=== PATIENT | female | born 1980 | race Caucasian/White ===

== ENCOUNTER 2020-08-04 18:53 | Inpatient (IN) | payer OTHER ==
[~2020-08-04] VITALS: Ht 172.7 cm; Wt 177.9 kg
[2020-08-04 20:21] LABS: Basophils # (auto) 0 10 ^3/uL (0-0.2); Basophils % (auto) 0.4 % (0.0-2.0); Eosinophils # (auto) 0 10 ^3/uL (0-0.8); Hematocrit 39.5 % (36.0-46.0); Hemoglobin 13.1 g/dL (12.2-16.2); Lymphocytes # (auto) 0.9 10 ^3/uL (0.4-5.4); Lymphocytes % (auto) 18.3 % (10.0-50.0); Mean Corpuscular Hemoglobin 26.1 pg (28.0-32.0); Mean Corpuscular Volume 78.9 fL (80.0-100.0); Monocytes # (auto) 0.5 10 ^3/uL (0-1.3); Monocytes % (auto) 10.4 % (0.0-12.0); Neutrophils # (auto) 3.4 10 ^3/uL (1.6-8.6); Neutrophils % (auto) 70.9 % (37.0-80.0); Nucleated Red Blood Cells % 0.2 %; Platelet Count (auto) 191 10^3/uL (140-450); Red Blood Cells 5.01 10^6/uL (4.0-5.20); White Blood Cell 4.8 10^3/uL (4.4-10.8)
[2020-08-04 20:45] LABS: BUN/Creatinine Ratio 15.2; Calcium 7.4 mg/dL (8.5-10.1); Potassium 3.4 mmol/L (3.5-5.1)
[2020-08-04 20:49] LABS: Bilirubin, Total 0.5 mg/dL (0.2-1.0); Total Protein 7.1 g/dL (6.4-8.2)
[2020-08-04] MEDS ORDERED: DexAMETHasone SOD PHOS 10MG/1ML VIAL INJ IV ONE (22:15)
[2020-08-04] MEDS ORDERED: DOXYCYCLINE 100MG/250ML 250 ML IV ONE (22:15)
[2020-08-04] MEDS ORDERED: ACETAMINOPHEN 325 MG TAB PO ONE (22:15)
[2020-08-05 00:32] LABS: INR 1.07 (0.9-1.15); Partial Thromboplastin Time 27.3 sec (23.0-31.2)
[2020-08-05] MEDS ORDERED: MORPHINE SULF INJ 2 MG/ML SYRINGE 1ML IV PRN ×2 (03:30)
[2020-08-05] MEDS ORDERED: HYDROcodone-ACET 5/325MG TAB PO PRN (03:30)
[2020-08-05] MEDS ORDERED: ATORVASTATIN 20 MG TAB PO ONE (03:30)
[2020-08-05] MEDS ORDERED: SODIUM CHLORIDE 0.9% 1,000 ML IV SCH (03:30)
[2020-08-05] MEDS ORDERED: ZOLPIDEM TARTRATE 5 MG TAB PO PRN (03:30)
[2020-08-05] MEDS ORDERED: NITROGLYCERIN 0.4 MG SL TAB SL PRN (03:30)
[2020-08-05] MEDS: ENOXAPARIN SOD 150 MG/1 ML SYRINGE SC SCH ×2 (04:14→15:54)
[2020-08-05] MEDS ORDERED: ALBUTEROL SULF HFA 90MCG INH 200DOSE IN SCH (06:00)
[2020-08-05] MEDS: ZINC SULFATE 220mg CAP or TAB PO SCH (08:29)
[2020-08-05] MEDS: ASCORBIC ACID 1,000 MG TAB PO SCH (08:30)
[2020-08-05] MEDS: DOXYCYCLINE 100 MG TAB/CAP PO SCH ×2 (08:30→22:37)
[2020-08-05 09:43] VITALS: BP 105/58
[2020-08-05] MEDS ORDERED: METOPROLOL TARTRATE 25 MG TAB PO SCH (10:00)
[2020-08-05] MEDS ORDERED: CLOPIDOGREL BISULFATE 75 MG TAB PO SCH (10:00)
[2020-08-05] MEDS ORDERED: ASPirin 81 mg TAB PO SCH (10:00)
[2020-08-05] MEDS ORDERED: LISINOPRIL 20 MG TAB PO SCH (10:00)
[2020-08-05] MEDS ORDERED: ENOXAPARIN SOD 40 MG/0.4 ML SYRINGE SC SCH (10:00)
[2020-08-05] MEDS ORDERED: POTASSIUM CHL 20 Meq TABLET PO ONE ×2 (11:00→13:00)
[2020-08-05] MEDS ORDERED: FUROSEMIDE 40 MG/4 ML VIAL IV ONE (13:00)
[2020-08-05] MEDS ORDERED: REMDESIVIR PER PHARMACY IV SCH (13:00)
[2020-08-05] MEDS: ALBUTEROL SULF HFA 90MCG INH 200DOSE IN SCH ×2 (14:00→22:32)
[2020-08-05] MEDS ORDERED: REMDESIVIR 200 MG in NS 210ml LOADING DOSE ADULT IV ONE (17:00)
[2020-08-06 00:40] VITALS: BP 97/53
[2020-08-06 00:55] VITALS: BP 97/51
[2020-08-06 02:18] VITALS: BP 107/60
[2020-08-06] MEDS: ENOXAPARIN SOD 150 MG/1 ML SYRINGE SC SCH (04:31)
[2020-08-06 07:19] LABS: Basophils # (auto) 0 10 ^3/uL (0-0.2); Eosinophils # (auto) 0 10 ^3/uL (0-0.8); Monocytes # (auto) 0.7 10 ^3/uL (0-1.3); Neutrophils # (auto) 6.9 10 ^3/uL (1.6-8.6); Nucleated Red Blood Cells % 0.1 %
[2020-08-06] MEDS: ALBUTEROL SULF HFA 90MCG INH 200DOSE IN SCH ×3 (07:21→22:00)
[2020-08-06 07:22] LABS: Basophils % (auto) 0.1 % (0.0-2.0); Hematocrit 41.4 % (36.0-46.0); Hemoglobin 13.3 g/dL (12.2-16.2); Lymphocytes # (auto) 0.6 10 ^3/uL (0.4-5.4); Lymphocytes % (auto) 7.5 % (10.0-50.0); Mean Corpuscular Hemoglobin 25.9 pg (28.0-32.0); Mean Corpuscular Hgb Conc. 32.2 g/dL (32.0-36.0); Mean Corpuscular Volume 80.4 fL (80.0-100.0); Monocytes % (auto) 8.2 % (0.0-12.0); Neutrophils % (auto) 84.2 % (37.0-80.0); Platelet Count (auto) 237 10^3/uL (140-450); Red Blood Cells 5.16 10^6/uL (4.0-5.20); Red Cell Distribution Width 16.1 % (11.8-14.3); White Blood Cell 8.2 10^3/uL (4.4-10.8)
[2020-08-06 07:39] LABS: Potassium 4.1 mmol/L (3.5-5.1)
[2020-08-06 07:51] LABS: BUN/Creatinine Ratio 41.7; Bilirubin, Total 0.5 mg/dL (0.2-1.0); Total Protein 7.1 g/dL (6.4-8.2)
[2020-08-06] MEDS ORDERED: POTASSIUM CHL 20 Meq TABLET PO SCH (10:00)
[2020-08-06] MEDS ORDERED: FUROSEMIDE 40 MG/4 ML VIAL IV SCH (10:00)
[2020-08-06] MEDS: ASCORBIC ACID 1,000 MG TAB PO SCH (10:58)
[2020-08-06] MEDS: ZINC SULFATE 220mg CAP or TAB PO SCH (10:58)
[2020-08-06] MEDS: CHOLECALCIFEROL (VITD3) 2,000 UNIT CAP PO SCH (10:58)
[2020-08-06] MEDS: DOXYCYCLINE 100 MG TAB/CAP PO SCH ×2 (10:58→21:24)
[2020-08-06] MEDS ORDERED: ASPirin-EC 81 mg tab PO ONE (17:00)
[2020-08-06] MEDS: REMDESIVIR 100mg in NS 230ml DAILYx4DAYS (NO VENT) IV SCH (17:01)
[2020-08-06 20:32] VITALS: BP 111/67
--- NOTE | 2020-08-06 20:32 | NUR ---
Telemetry admit from ER TITOJAZMIN admitted to Telemetry unit. Patient oriented to SUSAN NICKERSON, RN primary RN, unit, room, bed, and unit policies regarding patient care and visiting hours. Patient now on continuous telemetry monitoring, tele box #50 and telemetry reading on arrival to unit is NSR HR 87. Patient placed on bedside oxygen, weighed by bedscale and encouraged to call if they need something. All questions and concerns addressed, patient verbalized understanding. Will continue to monitor q1hr and PRN.
[2020-08-06] MEDS: ENOXAPARIN SOD 40 MG/0.4 ML SYRINGE SC SCH (21:24)
[2020-08-06 22:00] VITALS: BP 111/67
[2020-08-07 05:00] VITALS: BP 118/70
[2020-08-07 06:48] LABS: Basophils # (auto) 0 10 ^3/uL (0-0.2); Eosinophils # (auto) 0 10 ^3/uL (0-0.8)
[2020-08-07 06:51] LABS: Basophils % (auto) 0.2 % (0.0-2.0); Hematocrit 37.7 % (36.0-46.0); Hemoglobin 12.3 g/dL (12.2-16.2); Lymphocytes # (auto) 0.6 10 ^3/uL (0.4-5.4); Lymphocytes % (auto) 8.5 % (10.0-50.0); Mean Corpuscular Hemoglobin 25.9 pg (28.0-32.0); Mean Corpuscular Hgb Conc. 32.7 g/dL (32.0-36.0); Mean Corpuscular Volume 79.2 fL (80.0-100.0); Monocytes # (auto) 0.4 10 ^3/uL (0-1.3); Monocytes % (auto) 6.1 % (0.0-12.0); Neutrophils # (auto) 5.6 10 ^3/uL (1.6-8.6); Neutrophils % (auto) 85.2 % (37.0-80.0); Platelet Count (auto) 244 10^3/uL (140-450); Red Blood Cells 4.76 10^6/uL (4.0-5.20); Red Cell Distribution Width 16.3 % (11.8-14.3); White Blood Cell 6.5 10^3/uL (4.4-10.8)
[2020-08-07 07:06] LABS: Albumin 2.7 g/dL (3.4-5.0); Calcium 8.2 mg/dL (8.5-10.1); Potassium 3.8 mmol/L (3.5-5.1)
[2020-08-07 07:08] LABS: Bilirubin, Total 0.6 mg/dL (0.2-1.0); Total Protein 6.4 g/dL (6.4-8.2)
[2020-08-07] MEDS: ALBUTEROL SULF HFA 90MCG INH 200DOSE IN SCH ×3 (07:22→22:39)
--- NOTE | 2020-08-07 07:22 | NUR ---
Respiratory note: SWITCHED PT TO 15LNRB AT THIS TIME
--- NOTE | 2020-08-07 07:32 | NUR ---
Closing note Endorsed care to day shift RN. no sob or distress noted.
[2020-08-07 09:00] VITALS: BP 124/73
[2020-08-07] MEDS: ZINC SULFATE 220mg CAP or TAB PO SCH (09:03)
[2020-08-07] MEDS: CHOLECALCIFEROL (VITD3) 2,000 UNIT CAP PO SCH (09:04)
[2020-08-07] MEDS: DOXYCYCLINE 100 MG TAB/CAP PO SCH ×2 (09:04→21:21)
[2020-08-07] MEDS: ENOXAPARIN SOD 40 MG/0.4 ML SYRINGE SC SCH (09:04)
[2020-08-07] MEDS: ASCORBIC ACID 1,000 MG TAB PO SCH (09:04)
[2020-08-07] MEDS ORDERED: ASPirin-EC 81 mg tab PO SCH (10:00)
[2020-08-07] MEDS: FUROSEMIDE 40 MG/4 ML VIAL IV SCH (13:05)
[2020-08-07 13:06] VITALS: BP 128/71
[2020-08-07] MEDS: POTASSIUM CHL 10 Meq TABLET PO SCH (13:06)
[2020-08-07] MEDS ORDERED: DexAMETHasone SOD PHOS 10MG/1ML VIAL INJ IV ONE (15:15)
[2020-08-07 17:00] VITALS: BP 130/72
[2020-08-07] MEDS: REMDESIVIR 100mg in NS 230ml DAILYx4DAYS (NO VENT) IV SCH (18:23)
--- NOTE | 2020-08-07 20:20 | NUR ---
open note assumed care of pt. pt awake and alert upon entry. pt on 15 oxymizer with no distress visualized or expressed. this nurse instructed and observed pt on proper use of incentive spirometer. pt denies any pain. pt oriented to this nurse and updated on plan of care. pt bed locked, low and 2x rails up. call light in reach, this nurse to touch base with pt q1hr and prn. pt encouraged to call as needed.
[2020-08-07 21:22] VITALS: BP 137/73
[2020-08-07] MEDS: ENOXAPARIN SOD 100 MG/1 ML SYRINGE SC SCH (21:22)
[2020-08-08 04:54] VITALS: BP 109/64
[2020-08-08 06:17] LABS: Basophils # (auto) 0 10 ^3/uL (0-0.2); Basophils % (auto) 0.1 % (0.0-2.0); Eosinophils # (auto) 0 10 ^3/uL (0-0.8); Hematocrit 38.6 % (36.0-46.0); Hemoglobin 12.2 g/dL (12.2-16.2); Lymphocytes # (auto) 0.3 10 ^3/uL (0.4-5.4); Lymphocytes % (auto) 9.8 % (10.0-50.0); Mean Corpuscular Hemoglobin 25.7 pg (28.0-32.0); Mean Corpuscular Hgb Conc. 31.7 g/dL (32.0-36.0); Mean Corpuscular Volume 81.3 fL (80.0-100.0); Monocytes # (auto) 0.4 10 ^3/uL (0-1.3); Monocytes % (auto) 10.3 % (0.0-12.0); Neutrophils # (auto) 2.8 10 ^3/uL (1.6-8.6); Neutrophils % (auto) 79.8 % (37.0-80.0); Platelet Count (auto) 212 10^3/uL (140-450); Red Blood Cells 4.75 10^6/uL (4.0-5.20); Red Cell Distribution Width 15.9 % (11.8-14.3); White Blood Cell 3.5 10^3/uL (4.4-10.8)
[2020-08-08] MEDS: ALBUTEROL SULF HFA 90MCG INH 200DOSE IN SCH (06:31)
[2020-08-08 06:33] LABS: Anion Gap 4 (5-15); BUN/Creatinine Ratio 29.7; Blood Urea Nitrogen 19 mg/dL (7-18); Calcium 8.1 mg/dL (8.5-10.1); Carbon Dioxide 24 mmol/L (21-32); Chloride 110 mmol/L (98-107); GFR African American 133 mL/min; GFR Non-African American 110 mL/min; Glucose 190 mg/dL (74-106); Potassium 4.6 mmol/L (3.5-5.1); Sodium 138 mmol/L (136-145)
--- NOTE | 2020-08-08 07:00 | NUR ---
OPENING SHIFT NOTE RECEIVED REPORT ON THE PATIENT. AWAKE LYING IN BED. PATIENT SHOWS NO SIGNS OF DISTRESS AT THIS TIME. DISCUSSED THE PLAN OF CARE WITH THE PATIENT. BED IN LOWEST POSITION, SIDE RAILS UP X2, AND THE CALL LIGHT IS WITHIN REACH.
[2020-08-08 09:00] VITALS: BP 128/65
[2020-08-08] MEDS: FUROSEMIDE 40 MG/4 ML VIAL IV SCH (09:19)
[2020-08-08] MEDS: ZINC SULFATE 220mg CAP or TAB PO SCH (09:19)
[2020-08-08] MEDS: POTASSIUM CHL 10 Meq TABLET PO SCH (09:19)
[2020-08-08] MEDS: CHOLECALCIFEROL (VITD3) 2,000 UNIT CAP PO SCH (09:20)
[2020-08-08] MEDS: ASCORBIC ACID 1,000 MG TAB PO SCH (09:20)
[2020-08-08] MEDS: DOXYCYCLINE 100 MG TAB/CAP PO SCH ×2 (09:20→22:08)
[2020-08-08] MEDS: DexAMETHasone SOD PHOS 10MG/1ML VIAL INJ IV SCH (10:00)
[2020-08-08] MEDS: ENOXAPARIN SOD 100 MG/1 ML SYRINGE SC SCH ×2 (10:00→22:08)
--- NOTE | 2020-08-08 12:03 | NUR ---
Nutrition Assessment Est energy needs 2223-0299 kcal (25-30 kcal/kg IBW 64kg) Est protein needs 64-83g (1-1.3g/kg IBW 64kg) Will monitor and reassess prn. Addendum: 08/08/20 at [address] Amended: Links added.
[2020-08-08 12:53] VITALS: BP 127/60
[2020-08-08 17:00] VITALS: BP 134/73
--- NOTE | 2020-08-08 18:48 | NUR ---
PATIENT DOWN TO 10L O2. SAT IS 94% OXYMIZER. WILL CONTINUE TO MONITOR.
[2020-08-08] MEDS: REMDESIVIR 100mg in NS 230ml DAILYx4DAYS (NO VENT) IV SCH (18:50)
--- NOTE | 2020-08-08 19:40 | NUR ---
Opening Shift Note Assumed care of patient, awake and alert. No S/S of distress/SOB or pain. Patient on 10L Oxymizer. Instructed on POC and to call for assist PRN, will continue to monitor for changes Q1hr and PRN. Bed locked and in lowest position with call light in reach.
[2020-08-08 20:00] VITALS: BP 135/64
[2020-08-08] MEDS: ALBUTEROL SULF HFA 90MCG INH 200DOSE IN PRN (20:00)
[2020-08-09 04:13] VITALS: BP 122/62
[2020-08-09 08:03] LABS: Basophils # (auto) 0 10 ^3/uL (0-0.2); Basophils % (auto) 0.1 % (0.0-2.0); Eosinophils # (auto) 0 10 ^3/uL (0-0.8); Lymphocytes % (auto) 8.5 % (10.0-50.0); Monocytes # (auto) 0.5 10 ^3/uL (0-1.3)
[2020-08-09 08:05] LABS: Albumin 2.6 g/dL (3.4-5.0); Calcium 8.3 mg/dL (8.5-10.1); Eosinophils % (auto) 0.1 % (0.0-7.0); Hematocrit 38.4 % (36.0-46.0); Hemoglobin 12.1 g/dL (12.2-16.2); Lymphocytes # (auto) 0.5 10 ^3/uL (0.4-5.4); Mean Corpuscular Hemoglobin 25.3 pg (28.0-32.0); Mean Corpuscular Hgb Conc. 31.6 g/dL (32.0-36.0); Monocytes % (auto) 8.3 % (0.0-12.0); Neutrophils # (auto) 4.6 10 ^3/uL (1.6-8.6); Nucleated Red Blood Cells % 0.1 %; Platelet Count (auto) 254 10^3/uL (140-450); Red Cell Distribution Width 15.5 % (11.8-14.3); White Blood Cell 5.6 10^3/uL (4.4-10.8)
[2020-08-09 08:14] LABS: BUN/Creatinine Ratio 33.9; Bilirubin, Total 0.6 mg/dL (0.2-1.0); CRP High Sensitivity 3.94 mg/dL (< 0.3); Total Protein 6.6 g/dL (6.4-8.2)
[2020-08-09] MEDS: DexAMETHasone SOD PHOS 10MG/1ML VIAL INJ IV SCH (08:45)
[2020-08-09] MEDS: FUROSEMIDE 40 MG/4 ML VIAL IV SCH ×2 (08:46→21:59)
[2020-08-09] MEDS: ZINC SULFATE 220mg CAP or TAB PO SCH (08:46)
[2020-08-09] MEDS: DOXYCYCLINE 100 MG TAB/CAP PO SCH ×2 (08:46→21:59)
[2020-08-09] MEDS: POTASSIUM CHL 10 Meq TABLET PO SCH ×2 (08:46→21:59)
[2020-08-09] MEDS: ENOXAPARIN SOD 100 MG/1 ML SYRINGE SC SCH ×2 (08:46→22:00)
[2020-08-09] MEDS: ASCORBIC ACID 1,000 MG TAB PO SCH (08:46)
[2020-08-09] MEDS: CHOLECALCIFEROL (VITD3) 2,000 UNIT CAP PO SCH (08:46)
[2020-08-09 08:47] VITALS: BP 132/58
[2020-08-09 13:00] VITALS: BP 116/63
[2020-08-09 17:00] VITALS: BP 115/64
[2020-08-09] MEDS: REMDESIVIR 100mg in NS 230ml DAILYx4DAYS (NO VENT) IV SCH (19:10)
--- NOTE | 2020-08-09 19:50 | NUR ---
Opening Shift Note Assumed care of patient, awake and alert. Patient on 15L Nonrebreather. Instructed on POC and to call for assist PRN, will continue to monitor for changes Q1hr and PRN. Bed locked and in lowest position with call light in reach.
[2020-08-09 20:22] VITALS: BP 124/88
--- NOTE | 2020-08-09 23:35 | NUR ---
Respiratory note: PT ASSESSED FOR PRN TX. HEART RATE 86, RESPIRATORY RATE 20, SPO2 94% ON 15L OXYMIZER. NO TX INDICATED AT THIS TIME.
[2020-08-10 04:40] VITALS: BP 139/80
[2020-08-10] MEDS: ALBUTEROL SULF HFA 90MCG INH 200DOSE IN PRN ×2 (06:34→22:52)
--- NOTE | 2020-08-10 08:00 | NUR ---
OPENING SHIFT NOTE ASSUMED CARE OF PATIENT AWAKE AND ALERT. NO S/S OF DISTRESS NOTED OR COMPLAINTS OF PAIN. PATIENT IS ON 15L NON-REBREATHER WITH AN OXYGEN SATURATION OF 92%. PATIENT BECOMES EASILY SOB WITH EXERTION. WHILE EATING PATIENT IS TRANSFERRED TO AN OXYMIZER AND SATURATION GOES DOWN TO 84%; PATIENT STATES SHE FEELS SOB BUT EXPERIENCES NO DIZZINESS OR CHANGE IN MENTAL STATUS. PATIENT UPDATED ON POC FOR THE DAY AND ALL QUESTIONS ANSWERED. BED IS IN LOWEST, LOCKED POSITION WITH SIDE RAILS UP X2 AND CALL LIGHT WITHIN REACH. WILL CONTINUE TO MONITOR Q1H AND PRN.
[2020-08-10 09:00] VITALS: BP 119/60
[2020-08-10] MEDS: DexAMETHasone SOD PHOS 10MG/1ML VIAL INJ IV SCH (09:13)
[2020-08-10] MEDS: ZINC SULFATE 220mg CAP or TAB PO SCH (09:14)
[2020-08-10] MEDS: CHOLECALCIFEROL (VITD3) 2,000 UNIT CAP PO SCH (09:14)
[2020-08-10] MEDS: FUROSEMIDE 40 MG/4 ML VIAL IV SCH ×2 (09:14→22:32)
[2020-08-10] MEDS: ASCORBIC ACID 1,000 MG TAB PO SCH (09:14)
[2020-08-10] MEDS: POTASSIUM CHL 10 Meq TABLET PO SCH ×2 (09:14→22:32)
[2020-08-10] MEDS: ENOXAPARIN SOD 100 MG/1 ML SYRINGE SC SCH ×2 (09:15→22:32)
[2020-08-10 12:45] VITALS: BP 129/73
--- NOTE | 2020-08-10 16:38 | NUR ---
Faxed ABG results to [place] [phone] Leana BAXTER.
[2020-08-10 17:00] VITALS: BP 135/74
--- NOTE | 2020-08-10 18:12 | NUR ---
[facility] RECEIVED CALL FROM BARBY AT [facility] REGARDING TRANSFER. D/T ABG RESULTS ACCEPTING MD STATES PATIENT IS NOT ELIGIBLE FOR TRANSFER TONIGHT. WILL CONTINUE CARE.
[2020-08-10 22:29] VITALS: BP 126/68
--- NOTE | 2020-08-11 08:00 | NUR ---
OPENING SHIFT NOTE ASSUMED CARE OF PATIENT AWAKE AND ALERT. NO S/S OF DISTRESS NOTED OR COMPLAINTS OF PAIN. PATIENT IS ON 15L NON-REBREATHER WITH AN OXYGEN SATURATION OF 88% AND NOTICEABLE SOB. PATIENT STATES SHE FEELS SOB BUT EXPERIENCES NO DIZZINESS OR CHANGE IN MENTAL STATUS. DR BRYAN NOTIFIED. PATIENT UPDATED ON POC FOR THE DAY AND ALL QUESTIONS ANSWERED. BED IS IN LOWEST, LOCKED POSITION WITH SIDE RAILS UP X2 AND CALL LIGHT WITHIN REACH. WILL CONTINUE TO MONITOR Q1H AND PRN.
[2020-08-11 09:00] VITALS: BP 126/69
[2020-08-11] MEDS: FUROSEMIDE 40 MG/4 ML VIAL IV SCH ×2 (09:22→21:55)
[2020-08-11] MEDS: DexAMETHasone SOD PHOS 10MG/1ML VIAL INJ IV SCH (09:22)
[2020-08-11] MEDS: ZINC SULFATE 220mg CAP or TAB PO SCH (09:23)
[2020-08-11] MEDS: ENOXAPARIN SOD 100 MG/1 ML SYRINGE SC SCH ×2 (09:23→21:56)
[2020-08-11] MEDS: CHOLECALCIFEROL (VITD3) 2,000 UNIT CAP PO SCH (09:23)
[2020-08-11] MEDS: ASCORBIC ACID 1,000 MG TAB PO SCH (09:23)
[2020-08-11] MEDS: POTASSIUM CHL 10 Meq TABLET PO SCH ×2 (09:23→21:56)
--- NOTE | 2020-08-11 11:59 | NUR ---
Nutrition Followup Note Wt 206kg Pt is covid positive in covid isolation in the [facility] ([place], [place]). Pt is awaiting transfer to [place]. Pt is with a regular diet with a good po intake aeb pt with 100% po intake 12/5 per Rn note Est energy needs 7799-0704 kcal (25-30 kcal/kg IBW 64kg) Est protein needs 64-83g (1-1.3g/kg IBW 64kg) Will monitor and reassess prn. Labs: BUN 19H, GLUC 169H, Alb 2.6L, Ca 8.3L BM: Pt with 1 BM 12/2 per Rn note Skin: BS 21 low risk PES: Obesity r/t caloric intake in excess of needs aeb pt with a BMI of 69.1kg/m2 Comments 1) Continue to monitor po intake, labs, skin 2) refer pt to OPD on DC 3) Continue current plan of care Expected Outcomes/Goals: 1) pt po intake >75% 2) pt to gain no further wt while in hospital 3) f/u 3-5 days
--- NOTE | 2020-08-11 12:00 | NUR ---
OXYGEN PATIENT OXYGEN SATURATION IS 85% ON 15L NONREBREATHER. PATIENT REMAINS SOB. NO CHANGE IN MENTAL STATUS OR OTHER S/S OF HYPOXIA. RESPIRATORY AT BEDSIDE PROVIDING BREATHING TREATMENT AND ASSISTING IN PRONING. WILL CONTINUE TO MONITOR.
[2020-08-11 13:00] VITALS: BP 114/61
--- NOTE | 2020-08-11 13:00 | NUR ---
OXYGEN OXYGEN SATURATION TRENDING DOWN. PATIENT IS 83%. 6L NC APPLIED TO PATIENT UNDER 15L NONREBREATHER PER MD ORDER. CLOSE MONITORING AND ONGOING ASSESSMENT WILL CONTINUE.
--- NOTE | 2020-08-11 16:20 | NUR ---
ASSUMED CARE Verbal report received from NIKA Alfred. Patient is awake, alert and oriented X4. No signs or symptoms of distress, shortness of breath or pain. O2 @ 15 LPM non-rebreather plus 6 LPM via nasal cannula with sats @ 82%. RT paged to place patient on Hi-Flow. Tele #50, sinus tachycardia @ 105 bpm. IV to left forearm, 22 gauge, patent and saline locked. Bed locked, in lowest position, call light within reach, will continue to monitor Q1 hour and PRN.
--- NOTE | 2020-08-11 16:45 | NUR ---
HI FLOW Patient placed on Hi Flow 50 LPM/100% with sats @ 92%. Will continue to monitor Q 1 hour and PRN.
[2020-08-11 17:42] VITALS: BP 115/44
--- NOTE | 2020-08-11 19:26 | NUR ---
Care endorsed to NIKA Underwood, night nurse.
--- NOTE | 2020-08-11 19:30 | NUR ---
Opening Shift Note Assumed care of patient, awake and alert. Patient is on 50L High flow, O2 sat at 88%. No S/S of distress/SOB or pain. Safety measures maintained by keeping the bed locked in lowest position, 2 side rails up, personal items and call light within reach. Instructed on POC and to call for assist PRN, will continue to monitor for changes Q1hr and PRN.
[2020-08-11 22:00] VITALS: BP 99/51
[2020-08-11] MEDS: ALBUTEROL SULF HFA 90MCG INH 200DOSE IN PRN (23:22)
[2020-08-12 05:00] VITALS: BP 115/70
[2020-08-12 06:33] LABS: Basophils # (auto) 0 10 ^3/uL (0-0.2); Eosinophils # (auto) 0.2 10 ^3/uL (0-0.8); Lymphocytes # (auto) 0.8 10 ^3/uL (0.4-5.4); Neutrophils # (auto) 6.6 10 ^3/uL (1.6-8.6); Nucleated Red Blood Cells % 0.1 %
[2020-08-12 06:37] LABS: Basophils % (auto) 0.2 % (0.0-2.0); Eosinophils % (auto) 2.7 % (0.0-7.0); Hematocrit 40.4 % (36.0-46.0); Hemoglobin 12.8 g/dL (12.2-16.2); Lymphocytes % (auto) 9.9 % (10.0-50.0); Mean Corpuscular Hemoglobin 25.4 pg (28.0-32.0); Mean Corpuscular Hgb Conc. 31.8 g/dL (32.0-36.0); Monocytes # (auto) 0.6 10 ^3/uL (0-1.3); Monocytes % (auto) 6.7 % (0.0-12.0); Neutrophils % (auto) 80.5 % (37.0-80.0); Platelet Count (auto) 268 10^3/uL (140-450); Red Blood Cells 5.05 10^6/uL (4.0-5.20); Red Cell Distribution Width 15.5 % (11.8-14.3); White Blood Cell 8.2 10^3/uL (4.4-10.8)
[2020-08-12 06:48] LABS: Albumin 2.6 g/dL (3.4-5.0); Calcium 8.5 mg/dL (8.5-10.1); Potassium 4.1 mmol/L (3.5-5.1)
[2020-08-12 06:53] LABS: BUN/Creatinine Ratio 34.5; Bilirubin, Total 0.8 mg/dL (0.2-1.0); Total Protein 6.6 g/dL (6.4-8.2)
[2020-08-12 09:51] VITALS: BP 128/75
[2020-08-12] MEDS: FUROSEMIDE 40 MG/4 ML VIAL IV SCH ×2 (10:00→22:10)
[2020-08-12] MEDS: CHOLECALCIFEROL (VITD3) 2,000 UNIT CAP PO SCH (10:00)
[2020-08-12] MEDS: ZINC SULFATE 220mg CAP or TAB PO SCH (10:00)
[2020-08-12] MEDS: ASCORBIC ACID 1,000 MG TAB PO SCH (10:00)
[2020-08-12] MEDS: POTASSIUM CHL 10 Meq TABLET PO SCH ×2 (10:00→22:09)
[2020-08-12] MEDS: DexAMETHasone SOD PHOS 10MG/1ML VIAL INJ IV SCH (10:00)
[2020-08-12] MEDS ORDERED: DexAMETHasone SOD PHOS 10MG/1ML VIAL INJ IV ONE (11:15)
[2020-08-12] MEDS ORDERED: PANTOPRAZOLE 40 MG/10 ML VIAL INJ IV ONE (11:15)
[2020-08-12] MEDS ORDERED: VANCOMYCIN PER PHARMACY 0 MG IV SCH (11:15)
[2020-08-12] MEDS: PIPERACILLIN-TAZOB 3.375GM 100 ML IV SCH ×2 (12:00→18:00)
[2020-08-12] MEDS ORDERED: VANCOMYCIN 1GM/250ML 250 ML IV SCH (12:00)
[2020-08-12 12:19] LABS: INR 1.05 (0.9-1.15); Partial Thromboplastin Time 27.1 sec (23.0-31.2)
[2020-08-12] MEDS: ENOXAPARIN SOD 100 MG/1 ML SYRINGE SC SCH ×2 (14:15→22:09)
[2020-08-12 14:33] VITALS: BP 143/83
--- NOTE | 2020-08-12 14:50 | NUR ---
Phelps catheter insertion Patient assessed and determined to be in need of phelps catheter. Order obtained from Dr. Everett. Patient educated on catheter and reason for insertion. All questions answered. Phelps catheter 16 gauge Faroese inserted with clean sterile technique. Patient tolerated well.
[2020-08-12] MEDS: ALBUTEROL SULF HFA 90MCG INH 200DOSE IN PRN (16:10)
[2020-08-12 17:10] VITALS: BP 126/77
[2020-08-12] MEDS: VANCOMYCIN 1GM/250ML 250 ML IV SCH (23:07)
[2020-08-13 02:55] VITALS: BP 138/69
[2020-08-13] MEDS: PIPERACILLIN-TAZOB 3.375GM 100 ML IV SCH ×4 (03:34→17:16)
[2020-08-13 05:36] VITALS: BP 127/63
[2020-08-13] MEDS: VANCOMYCIN 1GM/250ML 250 ML IV SCH ×2 (07:00→21:04)
--- NOTE | 2020-08-13 07:35 | NUR ---
Opening Shift Note Assumed care of patient, awake and alert. No s/s of SOB or pain. Patient on bipap and side lying. Patient's phelps is patent, free of kinks and hung below the bladder. Bed is locked in lowest position, 2 side rails up and call light within reach. Instructed on POC and to call for assist PRN, will continue to monitor for changes Q1hr and PRN.
--- NOTE | 2020-08-13 07:38 | NUR ---
CLOSING NOTE- NOC SHIFT PATIENT RESTING IN BED. NO S/SX OF DISTRESS. SAT O2 CURRENTLY AT 89% ON BIPAP.
[2020-08-13] MEDS: ALBUTEROL SULF HFA 90MCG INH 200DOSE IN PRN (08:25)
[2020-08-13 08:45] LABS: Potassium 4.1 mmol/L (3.5-5.1)
[2020-08-13 08:55] LABS: Albumin 2.9 g/dL (3.4-5.0); BUN/Creatinine Ratio 26.6; Bilirubin, Total 0.9 mg/dL (0.2-1.0); Calcium 8.9 mg/dL (8.5-10.1); Total Protein 7.2 g/dL (6.4-8.2)
[2020-08-13 09:00] VITALS: BP 111/52
[2020-08-13 09:57] LABS: Basophils # (auto) 0 10 ^3/uL (0-0.2); Eosinophils # (auto) 0.2 10 ^3/uL (0-0.8); Monocytes # (auto) 0.5 10 ^3/uL (0-1.3); Nucleated Red Blood Cells % 0.1 %; Red Blood Cells 5.22 10^6/uL (4.0-5.20); White Blood Cell 10.6 10^3/uL (4.4-10.8)
[2020-08-13 10:00] LABS: Basophils % (auto) 0.4 % (0.0-2.0); Eosinophils % (auto) 2.1 % (0.0-7.0); Hematocrit 41.7 % (36.0-46.0); Hemoglobin 13.4 g/dL (12.2-16.2); Lymphocytes # (auto) 0.7 10 ^3/uL (0.4-5.4); Lymphocytes % (auto) 6.3 % (10.0-50.0); Mean Corpuscular Hemoglobin 25.7 pg (28.0-32.0); Mean Corpuscular Hgb Conc. 32.2 g/dL (32.0-36.0); Mean Corpuscular Volume 79.8 fL (80.0-100.0); Monocytes % (auto) 4.4 % (0.0-12.0); Neutrophils # (auto) 9.2 10 ^3/uL (1.6-8.6); Neutrophils % (auto) 86.8 % (37.0-80.0); Platelet Count (auto) 271 10^3/uL (140-450); Red Cell Distribution Width 15.6 % (11.8-14.3)
[2020-08-13] MEDS: FUROSEMIDE 40 MG/4 ML VIAL IV SCH ×2 (10:51→22:25)
[2020-08-13] MEDS: PANTOPRAZOLE 40 MG/10 ML VIAL INJ IV SCH (10:51)
[2020-08-13] MEDS: POTASSIUM CHL 10 Meq TABLET PO SCH ×2 (10:51→22:25)
[2020-08-13] MEDS: ENOXAPARIN SOD 100 MG/1 ML SYRINGE SC SCH ×2 (10:52→22:25)
[2020-08-13] MEDS: CHOLECALCIFEROL (VITD3) 2,000 UNIT CAP PO SCH (10:52)
[2020-08-13] MEDS: ASCORBIC ACID 1,000 MG TAB PO SCH (10:53)
[2020-08-13] MEDS: DexAMETHasone SOD PHOS 10MG/1ML VIAL INJ IV SCH (12:37)
[2020-08-13] MEDS: ZINC SULFATE 220mg CAP or TAB PO SCH (12:37)
[2020-08-13 12:45] VITALS: BP 116/70
[2020-08-13] MEDS ORDERED: DEXTROSE (50%) 50ML SYRG IV PRN (15:30)
--- NOTE | 2020-08-13 15:47 | NUR ---
Ultrasound guided IV placed Mary MAHER placed a 20g ultrasound guided IV in the left upper arm. Patient tolerated well.
[2020-08-13 16:45] VITALS: BP 123/63
[2020-08-13 17:52] LABS: Urine Amorphous Crystal MOD /hpf (None Seen); Urine Bacteria NONE SEEN /hpf (None Seen); Urine Blood 2+ /uL (Negative); Urine Specific Gravity 1.027 (1.001-1.035); Urine WBC 1 /hpf (0 - 5)
--- NOTE | 2020-08-13 21:00 | NUR ---
IV insertion IV access obtained, via clean sterile technique by inserting 22 gauge catheter at RIGHT HAND after attempt 2(s). IV secured properly. No trauma to site. Patient tolerated well. NOTE:
[2020-08-13] MEDS: ACCU-CHEK COMFORT CURVE STRIP VI SCH (22:26)
[2020-08-13] MEDS: InsuLIN REG 1unit/0.01ml Soln (100units/ml) SC SCH (22:27)
[2020-08-14] MEDS: PIPERACILLIN-TAZOB 3.375GM 100 ML IV SCH ×4 (00:29→17:06)
[2020-08-14] MEDS: VANCOMYCIN 1GM/250ML 250 ML IV SCH ×3 (04:01→20:00)
[2020-08-14 04:43] VITALS: BP 128/72
[2020-08-14 06:32] LABS: Basophils # (auto) 0 10 ^3/uL (0-0.2); Basophils % (auto) 0.1 % (0.0-2.0); Eosinophils # (auto) 0.1 10 ^3/uL (0-0.8); Eosinophils % (auto) 0.7 % (0.0-7.0); Hematocrit 43.8 % (36.0-46.0); Hemoglobin 14.3 g/dL (12.2-16.2); Lymphocytes # (auto) 0.8 10 ^3/uL (0.4-5.4); Lymphocytes % (auto) 8.5 % (10.0-50.0); Mean Corpuscular Hemoglobin 25.9 pg (28.0-32.0); Mean Corpuscular Hgb Conc. 32.6 g/dL (32.0-36.0); Mean Corpuscular Volume 79.5 fL (80.0-100.0); Monocytes # (auto) 0.4 10 ^3/uL (0-1.3); Monocytes % (auto) 4.7 % (0.0-12.0); Neutrophils # (auto) 8.3 10 ^3/uL (1.6-8.6); Nucleated Red Blood Cells % 0.1 %; Platelet Count (auto) 262 10^3/uL (140-450); Red Blood Cells 5.52 10^6/uL (4.0-5.20); Red Cell Distribution Width 15.6 % (11.8-14.3); White Blood Cell 9.6 10^3/uL (4.4-10.8)
[2020-08-14 06:44] LABS: Potassium 3.5 mmol/L (3.5-5.1)
--- NOTE | 2020-08-14 07:00 | NUR ---
OPENING SHIFT NOTE RECEIVED REPORT ON THE PATIENT. AWAKE LYING IN BED. PATIENT SHOWS NO SIGNS OF DISTRESS. DISCUSSED THE PLAN OF CARE WITH THE PATIENT. BED IN LOWEST POSITION, SIDE RAILS UP X2, AND THE CALL LIGHT IS WITHIN REACH.
[2020-08-14 07:03] LABS: Albumin 2.9 g/dL (3.4-5.0); BUN/Creatinine Ratio 24.4; Calcium 9.3 mg/dL (8.5-10.1)
[2020-08-14 09:00] VITALS: BP 136/66
[2020-08-14] MEDS: FUROSEMIDE 40 MG/4 ML VIAL IV SCH ×2 (10:00→21:45)
[2020-08-14] MEDS: DexAMETHasone SOD PHOS 10MG/1ML VIAL INJ IV SCH (10:00)
[2020-08-14] MEDS: PANTOPRAZOLE 40 MG/10 ML VIAL INJ IV SCH (10:01)
[2020-08-14] MEDS: POTASSIUM CHL 10 Meq TABLET PO SCH ×2 (10:01→21:45)
[2020-08-14] MEDS: ASCORBIC ACID 1,000 MG TAB PO SCH (10:01)
[2020-08-14] MEDS: ZINC SULFATE 220mg CAP or TAB PO SCH (10:01)
[2020-08-14] MEDS: CHOLECALCIFEROL (VITD3) 2,000 UNIT CAP PO SCH (10:02)
[2020-08-14] MEDS: ENOXAPARIN SOD 100 MG/1 ML SYRINGE SC SCH ×2 (10:02→21:46)
[2020-08-14] MEDS: ACCU-CHEK COMFORT CURVE STRIP VI SCH ×2 (10:02→21:46)
[2020-08-14] MEDS: InsuLIN REG 1unit/0.01ml Soln (100units/ml) SC SCH ×2 (10:05→21:59)
[2020-08-14 13:00] VITALS: BP 112/57
--- NOTE | 2020-08-14 15:27 | NUR ---
Nutrition Followup Note Wt 177.4 kg Pt is covid positive in isolation. Pt is awaiting transfer to [place]. Pt is with a Regular diet, appetite is good aeb ave 81% x4 PO intake per RN doc. Est energy needs 6340-0672 kcal (25-30 kcal/kg IBW 64kg) Est protein needs 64-83g (1-1.3g/kg IBW 64kg) Will monitor and reassess prn. Labs: BUN 22H, GLUC 194H, Alb 2.9L BM: Pt with no BM today per RN note Skin: BS 21 low risk PES: Obesity r/t caloric intake in excess of needs aeb pt with a BMI of 69.1kg/m2 Comments Will continue to monitor PO status, skin status, pertinent labs and weight trends. Will f/u in 3-5 days 1) Refer pt to OPD on DC 2) Continue current plan of care
[2020-08-14 16:45] VITALS: BP 115/62
--- NOTE | 2020-08-14 19:00 | NUR ---
Respiratory note: RECEIVED PT ON HFNC UNIT, UNIT CONNECTED TO RED OUTLET AND O2 SOURCE ALARMS ARE SET AND AUDIBLE. AMBU BAG/ PEEP VALVE AND MASK AT BEDSIDE. NO CHANGES MADE WILL CONTINUE TO MONITOR.
--- NOTE | 2020-08-14 23:33 | NUR ---
Respiratory note: AT BEDSIDE FOR ROUTINE HFNC CHECK. NO CHANGE MADE WILL CONTINUE TO MONITOR. PT DOES NOT WANT TO BE PLACED ON BIPAP FOR THE NIGHT. PT COMFORTABLE ON HFNC AND RESTING. PT AWARE I CAN BE PAGED AT ANY TIME PT WOULD LIKE TO GO ON BIPAP. RN AWARE OF PAGER ASSIGNMENT.
[2020-08-15] MEDS: PIPERACILLIN-TAZOB 3.375GM 100 ML IV SCH ×4 (00:04→17:55)
[2020-08-15] MEDS: VANCOMYCIN 1GM/250ML 250 ML IV SCH ×2 (02:53→09:12)
[2020-08-15 07:42] LABS: Basophils # (auto) 0 10 ^3/uL (0-0.2); Eosinophils # (auto) 0.2 10 ^3/uL (0-0.8); Lymphocytes # (auto) 1.3 10 ^3/uL (0.4-5.4); Monocytes # (auto) 0.8 10 ^3/uL (0-1.3)
[2020-08-15 07:44] LABS: Basophils % (auto) 0.1 % (0.0-2.0); Eosinophils % (auto) 1.6 % (0.0-7.0); Hematocrit 43.2 % (36.0-46.0); Hemoglobin 13.9 g/dL (12.2-16.2); Lymphocytes % (auto) 8.5 % (10.0-50.0); Mean Corpuscular Hemoglobin 25.5 pg (28.0-32.0); Mean Corpuscular Hgb Conc. 32.1 g/dL (32.0-36.0); Mean Corpuscular Volume 79.3 fL (80.0-100.0); Neutrophils # (auto) 13.4 10 ^3/uL (1.6-8.6); Neutrophils % (auto) 84.8 % (37.0-80.0); Nucleated Red Blood Cells % 0.2 %; Platelet Count (auto) 292 10^3/uL (140-450); Red Blood Cells 5.45 10^6/uL (4.0-5.20); Red Cell Distribution Width 15.4 % (11.8-14.3); White Blood Cell 15.8 10^3/uL (4.4-10.8)
[2020-08-15 07:56] LABS: Albumin 2.8 g/dL (3.4-5.0); Calcium 9.1 mg/dL (8.5-10.1); Potassium 3.4 mmol/L (3.5-5.1)
[2020-08-15 07:59] LABS: BUN/Creatinine Ratio 32.9; Bilirubin, Total 0.9 mg/dL (0.2-1.0); Total Protein 7.6 g/dL (6.4-8.2)
[2020-08-15 09:00] VITALS: BP 125/74
[2020-08-15] MEDS: FUROSEMIDE 40 MG/4 ML VIAL IV SCH ×2 (09:12→22:07)
[2020-08-15] MEDS: DexAMETHasone SOD PHOS 10MG/1ML VIAL INJ IV SCH (09:12)
[2020-08-15] MEDS: ASCORBIC ACID 1,000 MG TAB PO SCH (09:13)
[2020-08-15] MEDS: POTASSIUM CHL 10 Meq TABLET PO SCH (09:13)
[2020-08-15] MEDS: PANTOPRAZOLE 40 MG/10 ML VIAL INJ IV SCH (09:13)
[2020-08-15] MEDS: ZINC SULFATE 220mg CAP or TAB PO SCH (09:13)
[2020-08-15] MEDS: ENOXAPARIN SOD 100 MG/1 ML SYRINGE SC SCH (09:13)
[2020-08-15] MEDS: CHOLECALCIFEROL (VITD3) 2,000 UNIT CAP PO SCH (09:13)
[2020-08-15] MEDS: InsuLIN REG 1unit/0.01ml Soln (100units/ml) SC SCH ×2 (09:14→22:08)
[2020-08-15] MEDS: ACCU-CHEK COMFORT CURVE STRIP VI SCH ×2 (09:14→22:07)
[2020-08-15] MEDS ORDERED: POTASSIUM CHL 20 Meq TABLET PO ONE (10:15)
[2020-08-15 13:00] VITALS: BP 113/68
[2020-08-15 17:00] VITALS: BP 136/73
--- NOTE | 2020-08-15 19:05 | NUR ---
Opening Shift Note Assumed care of patient, awake and alert. No S/S of distress/SOB or pain. Pt saturating at 93% receiving 15L O2 via nonrebreather as well as 70 high flow O2. Safety measures in place, bed in lowest locked position, bed rails raised x2, call light within reach. All needs addressed at this time. Instructed on POC and to call for assist PRN, will continue to monitor for changes Q1hr and PRN.
[2020-08-15] MEDS: ALBUTEROL SULF HFA 90MCG INH 200DOSE IN PRN (20:49)
[2020-08-15 21:45] VITALS: BP 118/71
[2020-08-15] MEDS: POTASSIUM CHL 20 Meq TABLET PO SCH (22:00)
[2020-08-15] MEDS: ENOXAPARIN SOD 150 MG/1 ML SYRINGE SC SCH (22:07)
[2020-08-16] MEDS: PIPERACILLIN-TAZOB 3.375GM 100 ML IV SCH ×4 (01:23→20:28)
[2020-08-16] MEDS: VANCOMYCIN 1GM/250ML 250 ML IV SCH ×3 (03:09→20:29)
[2020-08-16 05:00] VITALS: BP 112/70
[2020-08-16] MEDS: FUROSEMIDE 40 MG/4 ML VIAL IV SCH ×2 (06:24→17:52)
--- NOTE | 2020-08-16 07:00 | NUR ---
Opening Shift Note Assumed care of patient, awake and alert. A/O X 4. Patient on 70L high flow NC and 15L non-rebreather mask. No S/S of distress/SOB or pain. Lungs are clear bilaterally. Skin is warm and dry with multiple bruising noted on both upper extremities and abdomen. Bran is in place with 525 yellow urine draining. Patient positioned on her right side and is tolerating it well. Instructed on POC and to call for assist PRN. Patient verbalized understanding. Will continue to monitor for changes Q1hr and PRN.
[2020-08-16] MEDS: ALBUTEROL SULF HFA 90MCG INH 200DOSE IN PRN (07:05)
[2020-08-16 08:00] VITALS: BP 112/61
[2020-08-16 08:12] LABS: Eosinophils # (auto) 0.3 10 ^3/uL (0-0.8); Mean Corpuscular Hemoglobin 26.1 pg (28.0-32.0); Mean Corpuscular Hgb Conc. 32.8 g/dL (32.0-36.0); Nucleated Red Blood Cells % 0.1 %
[2020-08-16 08:14] LABS: Basophils # (auto) 0 10 ^3/uL (0-0.2); Basophils % (auto) 0.2 % (0.0-2.0); Eosinophils % (auto) 1.5 % (0.0-7.0); Hematocrit 45.1 % (36.0-46.0); Hemoglobin 14.8 g/dL (12.2-16.2); Lymphocytes # (auto) 1.2 10 ^3/uL (0.4-5.4); Mean Corpuscular Volume 79.7 fL (80.0-100.0); Monocytes # (auto) 0.9 10 ^3/uL (0-1.3); Monocytes % (auto) 4.4 % (0.0-12.0); Neutrophils # (auto) 16.9 10 ^3/uL (1.6-8.6); Neutrophils % (auto) 87.9 % (37.0-80.0); Platelet Count (auto) 275 10^3/uL (140-450); Red Blood Cells 5.66 10^6/uL (4.0-5.20); Red Cell Distribution Width 15.7 % (11.8-14.3); White Blood Cell 19.2 10^3/uL (4.4-10.8)
[2020-08-16 09:05] LABS: Potassium 3.4 mmol/L (3.5-5.1)
[2020-08-16 09:18] LABS: BUN/Creatinine Ratio 29.8; Bilirubin, Total 0.9 mg/dL (0.2-1.0); Calcium 8.6 mg/dL (8.5-10.1)
[2020-08-16] MEDS ORDERED: DexAMETHasone SOD PHOS 10MG/1ML VIAL INJ IV SCH (10:00)
[2020-08-16] MEDS: InsuLIN REG 1unit/0.01ml Soln (100units/ml) SC SCH ×2 (10:00→22:54)
[2020-08-16] MEDS: ACCU-CHEK COMFORT CURVE STRIP VI SCH ×2 (10:30→22:53)
[2020-08-16] MEDS: POTASSIUM CHL 20 Meq TABLET PO SCH ×2 (10:30→21:55)
[2020-08-16] MEDS: ENOXAPARIN SOD 150 MG/1 ML SYRINGE SC SCH ×2 (10:30→21:55)
[2020-08-16] MEDS: ZINC SULFATE 220mg CAP or TAB PO SCH (10:30)
[2020-08-16] MEDS: ASCORBIC ACID 1,000 MG TAB PO SCH (10:30)
[2020-08-16] MEDS: PANTOPRAZOLE 40 MG/10 ML VIAL INJ IV SCH (10:30)
[2020-08-16] MEDS: CHOLECALCIFEROL (VITD3) 2,000 UNIT CAP PO SCH (10:30)
[2020-08-16 12:00] VITALS: BP 111/74
--- NOTE | 2020-08-16 12:30 | NUR ---
Dr. Everett at bedside Dr. Everett at bedside discussing the POC with the patient. All questions and concerns were answered at this time.
[2020-08-16] MEDS ORDERED: ALBUTEROL SULF HFA 90MCG INH 200DOSE IN PRN (14:15)
--- NOTE | 2020-08-16 16:36 | NUR ---
Patient unable to tolerate activity, becomes SOB with any exertion. Addendum: 08/16/20 at 1637 by Sumi Esquivel RN RN Amended: Links added.
--- NOTE | 2020-08-16 17:57 | NUR ---
Patient unable to tolerate movement. Addendum: 08/16/20 at 8598 by Sumi Esquivel RN RN Amended: Links added.
--- NOTE | 2020-08-16 18:40 | NUR ---
Bran catheter insertion Bran catheter D/C. Leaking urine out upon assessment balloon was completely out. Patient educated on catheter and reason for insertion. All questions answered. Bran catheter 16 gauge Bahamian inserted with clean sterile technique. Patient tolerated well.
--- NOTE | 2020-08-16 19:05 | NUR ---
Opening Shift Note Assumed care of patient, awake and alert. No S/S of distress/SOB or pain. Pt receiving O2 via non rebreather at 15L and high flow nasal cannula. Pt saturating at 86% at this time. Bran in place, draining harlan color urine to gravity. Safety measures in place, bed in lowest locked position, bed rails raised x2, call light within reach. All needs addressed at this time. Instructed on POC and to call for assist PRN, will continue to monitor for changes Q1hr and PRN.
[2020-08-16 22:02] VITALS: BP 144/99
[2020-08-17] MEDS: PIPERACILLIN-TAZOB 3.375GM 100 ML IV SCH ×3 (00:15→11:40)
--- NOTE | 2020-08-17 02:15 | NUR ---
Pt maintaining an oxygen saturation of low 70s ad sustaining a HR in 150s. Pt receiving 15 L non rebreather mask as well as high flow nasal cannula at 70. Pt instructed to prone, no improvement. RT paged. RT arrived to place pt on bipap.
--- NOTE | 2020-08-17 02:40 | NUR ---
Respiratory note: CALLED TO BEDSIDE FOR LOW O2 SATS. ENTERED ROOM, SATS OF 73-77% ON HFNC. PT PLACED ON BIPAP, SAME SETTINGS PREVIOUSLY ON, 100% FIO2. BIPAP ALARMING "OXYGEN NOT DELIVERED", PTS O2 SATS NOT IMPROVING, SATS NOW DROPPING. CHECKED OXYGEN CONNECTIONS, ALL CONNECTED APPROPRIATELY. BIPAP REMAINS ALARMING "OXYGEN NOT DELIVERED". BIPAP HOOKED UP TO FULL O2 TANK, SATS AND PTS COLOR IMPROVED, UP TO 85-88%. PT MOVED TO 208. WENT THRU 2.5 FULL O2 TANKS. BIPAP NO LONGER ALARMING REGARDING OXYGEN IN NEW ROOM. PT ENCOURAGED TO PRONE, RELAX BREATHING BEST SHE CAN. PT STATES SHE FEELS LIKE SHE IS GETTING MORE OXYGEN, FEELS BETTER. PT REMAINS ON CONT. POX MONITOR AT NURSES STATION.
--- NOTE | 2020-08-17 02:45 | NUR ---
Pt placed on bipap, however, oxygen delivery in pt room was not powerful enough to maintain bipap machine. Pt moved to room 208 in order to deliver O2 sufficiently.
--- NOTE | 2020-08-17 02:55 | NUR ---
Pt feeling anxious about event that occurred. PRN anxiety medication administered. Will continue to monitor.
--- NOTE | 2020-08-17 03:00 | NUR ---
Pt O2 sat maintaining in low 90s, however HR remains in 140s. Hospitalist paged.
[2020-08-17] MEDS: LORazepam 0.5 MG TAB PO PRN ×2 (03:05→13:59)
--- NOTE | 2020-08-17 03:05 | NUR ---
Received call back from hospitalist. Instructed to continue monitoring patient. Will continue to monitor.
[2020-08-17] MEDS: VANCOMYCIN 1GM/250ML 250 ML IV SCH (03:23)
[2020-08-17 05:00] VITALS: BP 96/56
--- NOTE | 2020-08-17 05:30 | NUR ---
Paged hospitalist regarding pt sustaining a HR of 140s and BP of 96/56. Also paged to discuss scheduled lasix. Awaiting call back.
[2020-08-17] MEDS: FUROSEMIDE 40 MG/4 ML VIAL IV SCH (06:00)
--- NOTE | 2020-08-17 06:31 | NUR ---
Second page to hospitalist, awaiting call back
--- NOTE | 2020-08-17 06:59 | NUR ---
No call back from hospitalist. Med held at this time.
--- NOTE | 2020-08-17 07:00 | NUR ---
Opening Shift Note Assumed care of patient, awake and alert. A/O X 4. Patient was put on Bi-pap machine on 100% O2 and moved to room 206. Patient appears tachypneic and diaphoretic. HR 140, O2 Sats 85%. Patient lying on right side, skin is warm and moist, Bran in place draining well. No call back from hospitalist at this time. Instructed on POC and to call for assist PRN. Patient verbalized understanding and is tolerating the treatment well at this time. Safety measures are in place and the call light is within reach of the patient. Will continue to monitor for changes Q1hr and PRN.
[2020-08-17 09:00] VITALS: BP 106/59
[2020-08-17] MEDS: ASCORBIC ACID 1,000 MG TAB PO SCH (10:00)
[2020-08-17] MEDS: ZINC SULFATE 220mg CAP or TAB PO SCH (10:00)
[2020-08-17] MEDS: ENOXAPARIN SOD 150 MG/1 ML SYRINGE SC SCH (10:00)
[2020-08-17] MEDS ORDERED: VANCOMYCIN 1GM/250ML 250 ML IV SCH (10:00)
[2020-08-17] MEDS: POTASSIUM CHL 20 Meq TABLET PO SCH (10:00)
[2020-08-17] MEDS: PANTOPRAZOLE 40 MG/10 ML VIAL INJ IV SCH (10:00)
[2020-08-17] MEDS: CHOLECALCIFEROL (VITD3) 2,000 UNIT CAP PO SCH (10:00)
[2020-08-17] MEDS: ACCU-CHEK COMFORT CURVE STRIP VI SCH (10:00)
[2020-08-17] MEDS: InsuLIN REG 1unit/0.01ml Soln (100units/ml) SC SCH (10:30)
--- NOTE | 2020-08-17 11:45 | NUR ---
Dr. Koenig at bedside Dr. Koenig rounding on the patient. Orders received, read back and verified.
--- NOTE | 2020-08-17 11:51 | NUR ---
Nutrition Followup Note Wt 177.9 kg Pt is covid positive in isolation. Pt is awaiting transfer to [place]. Pt is with a Regular diet, appetite is poor aeb ave 21% PO intake over 2 days per RN doc. Est energy needs 9555-2929 kcal (25-30 kcal/kg IBW 64kg) Est protein needs 64-83g (1-1.3g/kg IBW 64kg) Will monitor and reassess prn. Labs: BUN 25H, GLUC 224H, Alb 3.0L BM: Pt with 1 BM on 08/16 per RN note Skin: BS 18 mod risk PES: Obesity r/t caloric intake in excess of needs aeb pt with a BMI of 69.1kg/m2 Comments Will continue to monitor PO status, skin status, pertinent labs and weight trends. Will f/u in 3-5 days 1) Refer pt to OPD on DC
--- NOTE | 2020-08-17 12:46 | NUR ---
Patient unable to tolerate any type of big movements at this time due to abrupt desaturations in O2. Addendum: 08/17/20 at 1247 by Sumi Esquivel RN RN Amended: Links added.
[2020-08-17 13:00] VITALS: BP 100/55
[2020-08-17 14:50] LABS: Hematocrit 44.7 % (36.0-46.0); Hemoglobin 14.3 g/dL (12.2-16.2); Mean Corpuscular Hemoglobin 25.6 pg (28.0-32.0); Platelet Count (auto) 306 10^3/uL (140-450); Red Blood Cells 5.59 10^6/uL (4.0-5.20); Red Cell Distribution Width 15.7 % (11.8-14.3)
--- NOTE | 2020-08-17 14:50 | NUR ---
Critical lab Value WBC 38. Hospitalist paged.
[2020-08-17 14:52] LABS: White Blood Cell 36.5 10^3/uL (4.4-10.8)
[2020-08-17 14:54] LABS: Band Neutrophils % (manual) 0; Basophils % (manual) 0 (0.0-2.0); Blast Cells 0; Eosinophils % (manual) 0 (0-7); Metamyelocytes % 0; Myelocytes % 0; Promyelocytes % 0; Reactive Lymphocytes 0
[2020-08-17 15:01] LABS: Lymphocytes % (manual) 6 (10.0-50.0); Monocytes % (manual) 2 (0-12)
[2020-08-17] MEDS ORDERED: MEROPENEM 1GM IVPB 100 ML IV SCH ×2 (15:15→17:45)
--- NOTE | 2020-08-17 15:30 | NUR ---
EKG performed cardiac paged EKG taken and Nura paged.
[2020-08-17 15:39] LABS: Albumin 2.7 g/dL (3.4-5.0); Calcium 8.9 mg/dL (8.5-10.1); Potassium 4.3 mmol/L (3.5-5.1)
[2020-08-17 15:42] LABS: BUN/Creatinine Ratio 26.5
[2020-08-17 15:45] LABS: Bilirubin, Total 1.5 mg/dL (0.2-1.0); Total Protein 7.5 g/dL (6.4-8.2)
--- NOTE | 2020-08-17 16:41 | NUR ---
Dr. Albarado paged Dr. Albarado paged and updated on patient's status O2 Sat 79%, HR 145. Doctor communicated that she had been in contact with RT and that adjustments will be made to the Bipap machine including increasing the pressure. ABG's to be drawn this evening. Doctor will come and see the patient first thing in the morning.
--- NOTE | 2020-08-17 16:52 | NUR ---
Patient cannot tolerate any change in position at this time. Addendum: 08/17/20 at 1652 by Sumi Esquivel RN RN Amended: Links added.
[2020-08-17 17:00] VITALS: BP 106/56
[2020-08-17] MEDS ORDERED: LINEZOLID 600MG/300ML 300 ML IV SCH (18:00)
--- NOTE | 2020-08-17 19:04 | NUR ---
Dr. Ward call back Dr. Albarado called back concerned about the ABG results and communicated that she wants to proceed to intubate. RT made aware as well as manager of warehouse and the patient's . Patient's spouse requested to she her prior to intubation. He is on his way. Dr. Albarado requesting a call after intubation. Dr. Mccray to intubate. Will be endorsed to night warehouse selector.
--- NOTE | 2020-08-17 19:45 | NUR ---
Patient complained of difficulty breathing. RT was paged to have patient intubated. at bedside with patient. Patient has BIPAP in place but continues to have difficulty breathing. O@ was in the upper 70's.
[2020-08-17] MEDS ORDERED: ETOMIDATE (2MG/ML) 20ML VIAL IV ONE (20:20)
[2020-08-17] MEDS ORDERED: SUCCINYLCHOLINE CHLORIDE 20 MG/ML 10ML VIAL IV ONE (20:20)
[2020-08-17] MEDS ORDERED: MIDAZOLAM DRIP 50 mg/50mL 50 ML IV ONE (20:30)
--- NOTE | 2020-08-17 20:54 | NUR ---
Patient was transfer to [facility] after being intubated. Patient unstable when she was transfer to [facility]. She was accompany by spouse to [facility].
--- NOTE | 2020-08-17 20:54 | NUR ---
ARRIVAL TO [facility] PT ARRIVED TO [facility] AND TRANSFERRED TO [facility] BED. PT ALREADY INTUBATED AND CONNECTED TO MONITOR. RT PLACED PATIENT ON VENTILATOR. PULSES WEAK AND BLOOD PRESSURE UNOBTAINABLE, HR 93. PUPILS WERE +4 AND SLUGGISH. PT SKIN BLUE AND MOTTLING NOTICEABLE ON BILATERAL LOWER EXTREMITIES. NEW IV ACCESS PLACED IN LEFT SHOULDER FLUSHED AND PATENT. IV TO KONSTANTIN CONNECTED TO IV FLUIDS, BOLUS STARTED. IV TO RIGHT HAND PATENT AND FLUSHED. HOLLINS HANGING TO GRAVITY, FREE FROM KINKS WITH DARK [place] UOP AND FOUL STRONG ODOR PRESENT. PT SKIN COOL TO TOUCH AND DIAPHORETIC. AXILLARY TEMP WAS 100.3. AFTER BOLUS STARTED AND FOURTH ATTEMPT OF BP, BP NOTED TO BE 73/45. BED IN LOWEST LOCKED POSITION, SAFETY PRECAUTIONS IN PLACE.
[2020-08-17] MEDS ORDERED: NOREPINEPHRINE 8 MG/250ML KIT 250 ML IV ONE (21:14)
[2020-08-17] MEDS ORDERED: PROPOFOL 0 ML IV ONE (21:14)
--- NOTE | 2020-08-17 21:34 | NUR ---
CODE BLUE CALLED
--- NOTE | 2020-08-17 21:35 | NUR ---
CODE BLUE SEE RESUSCITATION RECORD.
[2020-08-17 21:41] VITALS: BP 108/65
[2020-08-17] MEDS ORDERED: EPINEPHrine HCL 250 ML IV ONE ×2 (21:51→21:52)
[2020-08-17] MEDS ORDERED: EPINEPHrine HCL 1 MG/10 ML SYRG ONE (21:52)
[2020-08-17] MEDS ORDERED: BUDESONIDE (INHALATION) 0.5 MG/2 ML NEB NEB SCH (22:00)
[2020-08-17] MEDS ORDERED: ALBUTEROL SULF 2.5 MG/0.5ML(0.5%) NEB SOLN NEB SCH (22:00)
--- NOTE | 2020-08-17 22:01 | NUR ---
PT PRONOUNCED BY JORDAN CALLAHAN. TOD [id number]
--- NOTE | 2020-08-17 22:30 | NUR ---
[facility] SPOKE WITH DEONNA FROM [facility]. THEY DECLINED WANTING ANY DONATION DUE TO PATIENT BEING COVID POSITIVE. REPORT #[id number]
--- NOTE | 2020-08-17 22:36 | NUR ---
OBSTETRICS SPECIALIST SPOKE TO "HYUN" WITH [facility]. GAVE PATIENT INFO, THEY WILL CALL BACK.
--- NOTE | 2020-08-17 23:49 | NUR ---
[facility] DEPUTY MATTHEW CUMMINGS CALLED BACK. [facility] RELEASED BODY WITHOUT INCIDENT NUMBER. DEPUTY SAID THEY WILL FORWARD THE MORTUARY A REPORT.
--- NOTE | 2020-08-17 23:52 | NUR ---
HOUSE SUP NO VACANCY IN [facility]. WILL CONTACT [facility] FOR TRANSFER OF BODY.
--- NOTE | 2020-08-18 00:12 | NUR ---
FAMILY CONTACT SPOKE WITH PATIENTS LORE. I INFORMED LORE OF WHERE BODY WILL BE TAKEN "[facility]". I OFFERED CONTACT INFO OF FACILITY AND HE DECLINED AND SAID HIS MOTHER JUST PASSED AND THEY USED SAME PLACE. I ALSO INFORMED LORE THAT WE HAD PATIENTS TWO METAL RINGS IN A BAG WITH PATIENTS COURT DEPUTY. LORE SAID HE WILL CALL IN THE MORNING 08/18/20 TO [facility]. I WILL PASS THIS INFO ONTO DAY SHIFT RN.
--- NOTE | 2020-08-18 00:23 | NUR ---
[facility]. THEY WILL DO A COURTESY HOLD. ETA 90 MIN OR MORE PER KAIT.
--- NOTE | 2020-08-18 02:15 | NUR ---
PATIENT PICKED UP [facility] PICKED UP PATIENT. SENT ORIGINAL CERTIFICATE AND FACE SHEET WITH [employer]
--- NOTE | 2020-08-18 02:28 | NUR ---
AFFORDABLE AT BEDSIDE TO TRIMMER AND BORER MACHINE OPERATOR PATIENT
== END 2020-08-18 02:28 | DRG 871 ==
LOC: EDBD 18:53 → ER 18:56 → OVERFLOW 18:57 → TELE-CENTR 08-06 20:19 → TELE-WESTW 08-06 20:25 → TELE-CENTR 08-11 16:04 → DOU IN ICU 08-17 20:53
PROVIDERS: ADMIT Hospitalist; ATTEND Internal Medicine
PROC: XW033E5 Introduction of Remdesivir Anti-infective into Peripheral Vein, Percutaneous Approach, New Technology Group 5 (ICD-10-PCS; 2020-08-05)
PROC: XW13325 Transfusion of Convalescent Plasma (Nonautologous) into Peripheral Vein, Percutaneous Approach, New Technology Group 5 (ICD-10-PCS; 2020-08-06)
PROC: 5A09357 Assistance with Respiratory Ventilation, Less than 24 Consecutive Hours, Continuous Positive Airway Pressure (ICD-10-PCS; 2020-08-12)
PROC: 5A12012 Performance of Cardiac Output, Single, Manual (ICD-10-PCS; principal; 2020-08-17)
PROC: 5A09357 Assistance with Respiratory Ventilation, Less than 24 Consecutive Hours, Continuous Positive Airway Pressure (ICD-10-PCS; 2020-08-17)
DX: A41.89 Other specified sepsis (principal); U07.1 COVID-19; J96.01 Acute respiratory failure with hypoxia; J12.89 Other viral pneumonia; I21.4 Non-ST elevation (NSTEMI) myocardial infarction; E44.1 Mild protein-calorie malnutrition; Z68.43 Body mass index [BMI] 50.0-59.9, adult; R65.20 Severe sepsis without septic shock; J01.00 Acute maxillary sinusitis, unspecified; E87.6 Hypokalemia; E66.01 Morbid (severe) obesity due to excess calories; I10 Essential (primary) hypertension; Z82.49 Family history of ischemic heart disease and other diseases of the circulatory system; Z83.3 Family history of diabetes mellitus; T38.0X5A Adverse effect of glucocorticoids and synthetic analogues, initial encounter; Y92.89 Other specified places as the place of occurrence of the external cause; R73.9 Hyperglycemia, unspecified
CPT/HCPCS: 36415; 36600; 71045; 80048; 80053; 80202; 81001; 82728; 82805; 82962; 83036; 83615; 83735; 84443; 84484; 85007; 85025; 85027; 85379; 85610; 85730; 86141; 86850; 86900; 86901; 87040; 87081; 87086; 87426; 93005; 93970; 94640; 94660; 96361; 96365; 96375; 99291; C9113; G0378; J0171; J0330; J1100; J1815; J2185; J2250; J2543; J2704; J3490